=== PATIENT | female | born 1945 | race Caucasian/White ===

== ENCOUNTER → 2023-10-10 08:48 | Outpatient (REF) | payer OTHER, SELFPAY ==
[2023-10-10 10:42] LABS: ALT (SGPT) 12 U/L (0-35); AST (SGOT) 34 U/L (14-36); Albumin 4.5 g/dl (3.5-5.0); Alkaline Phosphatase 106 U/L (38-126); Blood Urea Nitrogen 21 mg/dl (7-17); Calcium 9.8 mg/dl (8.4-10.2); Carbon Dioxide 27 mmol/L (22-30); Chloride 105 mmol/L (98-107); Glucose 87 mg/dl (70-99); HDL Cholesterol 74 mg/dl; LDL Cholesterol, Calculated 117 mg/dl; Potassium 5.1 mmol/L (3.5-5.1); Sodium 139 mmol/L (135-145); Total Bilirubin 0.4 mg/dl (0.2-1.3); Total Cholesterol 205 mg/dl (50-199); Triglyceride 70 mg/dl (10-149); Very Low Density Lipoprotein 14 mg/dl (0-30); eGFR > 60.00
== END ==
LOC: REG 08:48
PROVIDERS: ATTENDING PHYSICIAN Internal Medicine
DX: E78.00 Pure hypercholesterolemia, unspecified (principal)
CPT/HCPCS: 36415; 80053; 80061

== ENCOUNTER → 2024-01-09 12:15 | Outpatient (REF) | payer OTHER, SELFPAY ==
[2024-01-09 16:05] LABS: % Basophils 0.4 % (0-2); % Eosinophils 1.1 % (0-6); % Immature Granulocytes 0.4 % (0-0.5); % Lymphocytes 26.7 % (20.5-51.1); % Monocytes 7.8 % (1.7-9.3); % Neutrophils 63.6 % (42.2-75.2); Absolute Eosinophils 0.1 10^3/uL (0-0.7); Absolute Lymphocytes 1.9 10^3/uL (1.2-3.4); Absolute Monocytes 0.6 10^3/uL (0.1-0.6); Absolute Neutrophils 4.6 10^3/uL (1.4-6.5); Hematocrit 41.3 % (37.0-47.0); Hemoglobin 13.6 g/dL (12.0-16.0); Mean Corp Hgb Conc. 32.9 g/dL (33.0-37.0); Mean Corpuscular Hgb 29.8 pg (27.0-31.0); Mean Corpuscular Volume 90.6 fL (81.0-99.0); Mean Platelet Volume 9.8 fL (7.4-10.4); Nucleated Red Blood Cells % 0 %; Platelet Count 321 10^3/uL (130-400); Red Blood Cell Count 4.56 10^6/uL (4.20-5.40); Red Cell Dist. Width 13.3 % (11.5-14.5); White Blood Cell Count 7.2 10^3/uL (4.8-10.8)
[2024-01-09 16:16] LABS: Erythrocyte Sed Rate 11 mm/hour (0-20)
[2024-01-09 16:24] LABS: C-Reactive Protein < 5.00 mg/L (0.0-10.00)
== END ==
LOC: HWLAB 12:15
PROVIDERS: ATTENDING PHYSICIAN Physician Assistant; FAMILY PHYSICIAN Student in an Organized Health Care Education/Training Program
DX: R51.9 Headache, unspecified (principal); R22.31 Localized swelling, mass and lump, right upper limb; T14.8XXA Other injury of unspecified body region, initial encounter
CPT/HCPCS: 36415; 85025; 85652; 86140

== ENCOUNTER → 2024-01-24 15:25 | Outpatient (REF) | payer OTHER, SELFPAY | LOC: HWRAD 15:25 | PROVIDERS: ATTENDING PHYSICIAN Physician Assistant | DX: R22.31 Localized swelling, mass and lump, right upper limb (principal); T14.8XXA Other injury of unspecified body region, initial encounter | CPT/HCPCS: 76882 ==

== ENCOUNTER → 2024-02-04 13:51 | Outpatient (REF) | payer OTHER, SELFPAY | LOC: WDC 13:51 | PROVIDERS: ATTENDING PHYSICIAN Student in an Organized Health Care Education/Training Program | DX: M81.0 Age-related osteoporosis without current pathological fracture (principal); Z12.31 Encounter for screening mammogram for malignant neoplasm of breast | CPT/HCPCS: 77063; 77067; 77080 ==

== ENCOUNTER → 2024-10-28 07:59 | Outpatient (REF) | payer OTHER, SELFPAY ==
[2024-10-28 09:03] LABS: % Basophils 0.5 % (0-2); % Lymphocytes 33.5 % (20.5-51.1); % Monocytes 9.4 % (1.7-9.3); % Neutrophils 51.6 % (42.2-75.2); Absolute Eosinophils 0.3 10^3/uL (0-0.7); Absolute Lymphocytes 1.9 10^3/uL (1.2-3.4); Absolute Monocytes 0.5 10^3/uL (0.1-0.6); Absolute Neutrophils 2.9 10^3/uL (1.4-6.5); Hemoglobin 13.1 g/dL (12.0-16.0); Mean Corp Hgb Conc. 32.8 g/dL (33.0-37.0); Mean Corpuscular Hgb 29.6 pg (27.0-31.0); Mean Corpuscular Volume 90.3 fL (81.0-99.0); Mean Platelet Volume 9.4 fL (7.4-10.4); Nucleated Red Blood Cells % 0 %; Platelet Count 272 10^3/uL (130-400); Red Blood Cell Count 4.43 10^6/uL (4.20-5.40); Red Cell Dist. Width 13.4 % (11.5-14.5); White Blood Cell Count 5.7 10^3/uL (4.8-10.8)
[2024-10-28 11:53] LABS: ALT (SGPT) 14 U/L (0-35); AST (SGOT) 35 U/L (14-36); Alkaline Phosphatase 98 U/L (38-126); Blood Urea Nitrogen 25 mg/dl (7-17); Calcium 9.7 mg/dl (8.4-10.2); Carbon Dioxide 25 mmol/L (22-30); Chloride 109 mmol/L (98-107); Glucose 79 mg/dl (70-99); HDL Cholesterol 57 mg/dl; LDL Cholesterol, Calculated 107 mg/dl; Potassium 4.8 mmol/L (3.5-5.1); Sodium 141 mmol/L (135-145); Total Bilirubin 0.5 mg/dl (0.2-1.3); Total Cholesterol 176 mg/dl (50-199); Total Protein 6.4 g/dl (6.3-8.2); Triglyceride 61 mg/dl (10-149); Very Low Density Lipoprotein 12 mg/dl (0-30); eGFR > 60.00
[2024-10-28 12:27] LABS: Vitamin D, 25-OH*** 56.5 ng/mL (30-80)
[2024-10-28 13:09] LABS: TSH Reflex To Free T4 1.78 uIU/ml (0.47-4.68)
== END ==
LOC: REG 07:59
PROVIDERS: ATTENDING PHYSICIAN Student in an Organized Health Care Education/Training Program; OTHER PHYSICIAN Internal Medicine
DX: M81.0 Age-related osteoporosis without current pathological fracture (principal); E78.00 Pure hypercholesterolemia, unspecified; K21.9 Gastro-esophageal reflux disease without esophagitis; I10 Essential (primary) hypertension
CPT/HCPCS: 36415; 80053; 80061; 82306; 84443; 85025

== ENCOUNTER 2024-12-25 05:45 | Day surgery (SDC) | payer OTHER, SELFPAY ==
[2024-12-25 06:15] VITALS: BMI 21.3
[2024-12-25] MEDS: TYLENOL 1000 MG PO (06:15)
[2024-12-25 06:17] VITALS: BP 152/84; BMI 21.3
[2024-12-25] MEDS: NORMOSOL-R/PLASMALYTE-A 1000 IV (06:28)
--- NOTE | 2024-12-25 06:58 | W.SUR.PREOP ---
Pre-Operative Surgical Note
-
I have examined this patient prior to the performance of the scheduled procedure.
The patient's condition is unchanged from the time of the current History and
Physical and the patient is able to undergo the scheduled procedure.
--- NOTE | 2024-12-25 07:34 | W.IMMPOSTOP ---
Surgical Immed Post Op Note
-
Primary Surgeon: Demetri Valdovinos MD
Assisting Surgeon: None
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
Post-op Diagnosis: Same
Procedure Performed: Excision of an intramuscular lipoma of the right upper back
Anesthesia Type: General
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
Estimated Blood Loss: 1 cc
Complications: None
Operative Findings: 2 x 2 cm encapsulated lipoma involving the subscapularis muscle of the right upper back.
--- NOTE | 2024-12-25 07:36 | OR.RPT ---
Operative Report
Operative Report
Patient Name: Cristina Rosales
: 1945
Date of Operation: 12/25/2024
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
Postoperative Diagnosis: Same
Procedure(s):
Excision of intramuscular lipoma of the right upper back
Surgeon(s):
Dr. Valdovinos
Community Development Technician(s):
CONNIE Prescott
Anesthesia: MAC
Estimated Blood Loss: 1 cc
Urine Output: None
Drains/Lines/Implants: None
Specimens:
1. intramuscular lipoma of the right upper back
Indication for surgery:
This is a 79-year-old female who presents with a symptomatic subcutaneous mass in her right upper back. After evaluation in the office they were diagnosed with a lipoma with concern for intramuscular involvement. After discussion of risk benefits
and alternatives they elected and were consented for surgery.
Operative Findings: 2 x 2 cm encapsulated lipoma involving the subscapularis muscle of the right upper back.
Details of the operation:
The patient was brought to the operating room a placed in the prone position. After appropriate sedation by anesthesia, the area of the right upper back was prepped and draped in the usual fashion. A linear incision over natural skin line was made
over the mass and carried down through the subcutaneous tissue. The Lipoma was identified and found to be encapsulated and involving the subscapularis muscles. The lipoma was carefully peeled away from the surrounding muscle fibers a few which had
to be sacrificed. The lipoma was freed circumferentially completely. The specimen which measured roughly 2 x 2 cm was passed off the field. The cavity was irrigated and hemostasis was achieved. The space was closed with interrupted 3-0 Vicryl
sutures in layers, followed by dermabond. All counts were correct at the end of procedure. The patient was then transferred to the PACU for recovery.
I was the attending physician and performed the procedure with assistance of the PA above. The assistance of CONNIE Prescott was required due to the complexity of the procedure. During the procedure Kamila assisted with retraction, resection, and
closure of the wound. I was present for all portions of the case.
Demetri Valdovinos MD
[2024-12-25 07:40] VITALS: BP 118/61
[2024-12-25 07:45] VITALS: BP 124/62
[2024-12-25 08:00] VITALS: BP 117/57
[2024-12-25 08:15] VITALS: BP 129/94
[2024-12-25 08:30] VITALS: BP 131/68
== END 2024-12-25 08:45 | disposition home or self-care (01) ==
LOC: SDS 05:45
PROVIDERS: ATTENDING PHYSICIAN Surgery
DX: D17.1 Benign lipomatous neoplasm of skin and subcutaneous tissue of trunk (principal)
CPT/HCPCS: 21932; 88304

== ENCOUNTER → 2025-02-10 12:50 | Outpatient (REF) | payer OTHER, SELFPAY | LOC: WDC 12:50 | PROVIDERS: ATTENDING PHYSICIAN Student in an Organized Health Care Education/Training Program | DX: Z12.31 Encounter for screening mammogram for malignant neoplasm of breast (principal) | CPT/HCPCS: 77063; 77067 ==

== ENCOUNTER → 2025-05-19 14:44 | Outpatient (REF) | payer OTHER, SELFPAY | LOC: REG 14:44 | PROVIDERS: ATTENDING PHYSICIAN Student in an Organized Health Care Education/Training Program | DX: M79.644 Pain in right finger(s) (principal) | CPT/HCPCS: 73130 ==

== ENCOUNTER → 2025-05-21 13:30 | Outpatient (REF) | payer SELFPAY | LOC: HWRAD 13:30 | PROVIDERS: ATTENDING PHYSICIAN Student in an Organized Health Care Education/Training Program | DX: E78.00 Pure hypercholesterolemia, unspecified (principal); Z82.49 Family history of ischemic heart disease and other diseases of the circulatory system | CPT/HCPCS: 75571 ==

== ENCOUNTER → 2025-05-28 10:15 | Outpatient (REF) | payer OTHER, SELFPAY | LOC: REG 10:15 | PROVIDERS: ATTENDING PHYSICIAN Internal Medicine; FAMILY PHYSICIAN Student in an Organized Health Care Education/Training Program | DX: R19.7 Diarrhea, unspecified (principal) | CPT/HCPCS: 83993; 87324; 87328; 87329; 87449 ==

== ENCOUNTER 2025-06-05 06:11 | Outpatient (RCR) | payer OTHER, SELFPAY | END 2025-06-05 23:59 | disposition home or self-care (01) | LOC: RPT 06:11 | PROVIDERS: ATTENDING PHYSICIAN Student in an Organized Health Care Education/Training Program | DX: R32 Unspecified urinary incontinence (principal); R15.9 Full incontinence of feces; R15.1 Fecal smearing; R15.2 Fecal urgency; M62.9 Disorder of muscle, unspecified; Z73.6 Limitation of activities due to disability | CPT/HCPCS: 97162; 97530 ==